=== PATIENT | female | born 2000 ===

== ENCOUNTER 2020-05-10 15:11 | Emergency (ER) | payer SELFPAY ==
[~2020-05-10] VITALS: Ht 162.6 cm; Wt 103.7 kg
[2020-05-10 15:13] VITALS: BP 150/57
--- NOTE | 2020-05-10 15:54 | NUR ---
no answer in lobby
--- NOTE | 2020-05-10 16:48 | NUR ---
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
== END 2020-05-10 16:51 | disposition left against medical advice (07) ==
LOC: ED 16:30
DX: R10.9 Unspecified abdominal pain (principal)
CPT/HCPCS: 99281